=== PATIENT | female | born 1985 | race Caucasian/White ===

== ENCOUNTER 2023-06-25 12:25 | Outpatient (REF) | payer BC, SELFPAY ==
--- NOTE | 2023-06-25 11:45 | PAPFT_PTH ---
PATIENT: Chad Barajas LOC: [facility] U#:[id number] AGE/SX: 37/F ROOM: RE06/25/[address]: Kim Macias APRN : 1985 BED: DIS: 06/25/2023 SPEC #: [id number] RECD: 06/25/23 16:46 STATUS: NOEMÍ REQ #: [id number] ADRIÁN: 06/25/23 11:[address]: Kim Macias DEPT: [facility] Cytology RECD BY: Lea Caba Tissues: 1 - CX/ENDOCX FOR PAP SMEARS Procedures: PAP THIN PREP/[facility] Screening HPV DNA PROBE Comments: [id number]
== END 2023-06-25 12:26 | disposition home or self-care (01) ==
LOC: LBN 12:25
PROVIDERS: PCP Nurse Practitioner Adult Health; Referring Provider Nurse Practitioner Adult Health; Visit Provider Nurse Practitioner Adult Health
DX: Z12.4 Encounter for screening for malignant neoplasm of cervix (principal)
CPT/HCPCS: 88142; 87624